=== PATIENT | female | born 1965 | race Caucasian/White ===

== ENCOUNTER 2016-12-30 08:47 | Emergency (ER) | payer BC ==
[2016-12-30 08:58] VITALS: BP 147/79
--- NOTE | 2016-12-30 10:23 | UC ---
Back Pain HPI - HPI Summary HPI Summary: L lower flank/back pain, some in the bilat low back starting 2 days ago. Worse with movement, can't get comfortable. Some urinary frequency (but drinking more because she wants to stay hydrated). Denies fever or vomiting, does have slight chills and nausea. Had a kidney stone in her 20s but that felt more painful. No pain, numbness, or tingling in her legs or saddle region. - History of Current Complaint Chief Complaint: [facility] Stated Complaint: LOW BACK PAIN Time Seen by Provider: 12/30/16 10:08 Hx Obtained From: Patient Hx Last Menstrual Period: 12/08/16 ?: No Onset/Duration: Gradual Onset, Lasting Days Timing: Constant Severity Initially: Mild Severity Currently: Moderate Back Pain: Is Discrete @ Character: Aching, Stiffness Aggravating: Movement Associated Signs And Symptoms: Negative: Weakness, Numbness, Tingling, Bladder Incontinence, Bowel Incontinence - Allergies/Home Medications Allergies/Adverse Reactions: Allergies Allergy/AdvReac Type Severity Reaction Status Date / Time Acetaminophen [From Percocet] Allergy Rash Verified 01/11/16 12:23 Cefaclor [From Ceclor] Allergy heart race Verified 12/30/16 09:06 Oxycodone [From Percocet] Allergy Rash Verified 01/11/16 12:23 Sulfamethoxazole Allergy Rash Verified 01/11/16 12:23 w/Trimethoprim [From Bactrim] PMH/Surg Hx/FS Hx/Imm Hx Endocrine History Of: Denies: Diabetes, Thyroid Disease Cardiovascular History Of: Denies: Cardiac Disorders, Hypertension, Pacemaker/ICD Respiratory History Of: Denies: COPD, Asthma GI/ History Of: Denies: Ulcer, Renal Disease Neurological History Of: Denies: Migraine Cancer History Of: Denies: Breast Cancer - Surgical History Surgical History: Yes Surgery Procedure, Year, and Place: TUBAL; LUMPECTOMY; BROCHIALCLEFT CYST; LUNG SURGERY - STAPLED A HOLE SHUT TO KEEP LUNG FROM COLLAPSING; BREAST BENIGN LUMP REMOVED; CYST REMOVED FROM CANAL AFTER FIRST CHILD ; - Family History Known Family History: Positive: None - Social History Lives: Alone Alcohol Use: Weekly Alcohol Amount: 3-5 drinks per week. Not always every week. Substance Use Type: None Smoking Status (MU): Current Some Day Smoker Type: Cigarettes Have You Smoked in the Last Year: Yes - Immunization History Most Recent Influenza Vaccination: Unknown Most Recent Tetanus Shot: Unknown Most Recent Pneumonia Vaccination: Never Review of Systems Constitutional: Negative Skin: Negative Eyes: Negative ENT: Negative Respiratory: Negative Cardiovascular: Negative Gastrointestinal: Negative Genitourinary: Negative Motor: Negative Neurovascular: Negative Musculoskeletal: Decreased ROM - back, Other: - low back Neurological: Negative Psychological: Negative All Other Systems Reviewed And Are Negative: Yes Physical Exam Triage Information Reviewed: Yes Appearance: Well-Appearing, No Pain Distress, Well-Nourished Vital Signs: Initial Vital Signs Temp 98 F 12/30/16 08:54 Pulse 113 12/30/16 08:54 Resp 16 12/30/16 08:54 BP 147/79 12/30/16 08:54 Pulse Ox 100 12/30/16 08:54 Vital Signs Reviewed: Yes Eye Exam: Normal Eyes: Positive: Conjunctiva Clear ENT Exam: Normal ENT: Positive: Normal ENT inspection, Hearing grossly normal, Pharynx normal, TMs normal Dental Exam: Normal Neck exam: Normal Neck: Positive: Supple, Nontender, No Lymphadenopathy Respiratory Exam: Normal Respiratory: Positive: Chest non-tender, Lungs clear, Normal breath sounds, No respiratory distress, No accessory muscle use Cardiovascular Exam: Normal Cardiovascular: Positive: RRR, No Murmur Musculoskeletal Exam: Normal Musculoskeletal: Positive: Strength Intact, ROM Intact Neurological Exam: Normal, Other - DTRs 2+ BLE Neurological: Positive: Alert Psychological Exam: Normal Psychological: Positive: Normal Response To Family Skin Exam: Normal Back Pain Course/Dx - Differential Dx/Diagnosis Provider Diagnoses: Low back strain. elevated blood pressure due to discomfort Discharge - Discharge Plan Condition: Stable Disposition: HOME Patient Education Materials: Low Back Strain (ED) Referrals: Brock Us MD [Primary Care Provider] - Additional Instructions: Take 400-600mg ibuprofen 3 times per day for pain. If you have significantly worsening symptoms, please go to the hospital. If you do not have some clear improvement by next week, see your primary care office for a recheck.
== END 2016-12-30 10:41 | disposition home or self-care (01) ==
LOC: UCEAST 08:47
DX: S39.012A Strain of muscle, fascia and tendon of lower back, initial encounter (principal); X58.XXXA Exposure to other specified factors, initial encounter
CPT/HCPCS: 81003; 99211; G0463

== ENCOUNTER 2018-05-13 16:41 | Emergency (ER) | payer BC ==
[2018-05-13 16:47] VITALS: BP 150/83
== END 2018-05-13 18:09 | disposition left against medical advice (07) ==
LOC: ED 16:41
DX: N93.9 Abnormal uterine and vaginal bleeding, unspecified (principal); Z53.21 Procedure and treatment not carried out due to patient leaving prior to being seen by health care provider